=== PATIENT | male | born 1975 | race African-American/Black ===

== ENCOUNTER 2018-01-28 01:43 | Emergency (ER) | payer OTHER ==
[~2018-01-28] VITALS: Ht 182.9 cm; Wt 156.5 kg
--- NOTE | ~2018-01-28 | EKG ---
[address] [address] ELECTROCARDIOGRAM REPORT Name: 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[place] : 1975 Requested By: Angela Hernandez Order Number: [id number] MD: Wyatt Henry Measurements Intervals [place] Rate: 102 P: 102 AK: 181 QRS: 153 QRSD: 105 T: 28 QT: 391 QTc: 510 Interpretive Statements Sinus tachycardia Probable left atrial enlargement Probable right ventricular hypertrophy Compared to ECG 09/25/2007 11:34:54 Sinus rhythm no longer present Atrial premature complex(es) no longer present Left posterior fascicular block no longer present Myocardial infarct finding no longer present Electronically Signed On 01-28-2018 13:13:06 CDT by Wyatt Henry [email or web address] <ELECTRONICALLY SIGNED> By: Wyatt Henry MD 01/28/18 1313 2 2 Wyatt Henry MD /EPI
[2018-01-28 02:12] LABS: ABSOLUTE NEUTROPHILS 4.7 thou/uL (1.4-8.2); BASOPHILS 0.9 % (0.0-2.0); EOSINOPHILS 10.3 % (0.0-3.0); HEMATOCRIT 40.6 % (42.0-52.0); HEMOGLOBIN 13.3 gm/dL (14.0-18.0); LYMPHOCYTES 20.6 % (24.0-44.0); MCH 26.1 pg (26.0-34.0); MCHC 32.7 g/dL (28.0-37.0); MCV 79.9 fL (80.0-100.0); MONOCYTES 5.7 % (1.0-8.0); PLATELET COUNT 206 thou/uL (150-400); POLYS 62.5 % (36.0-66.0); RBC 5.08 mil/uL (4.50-6.00); RDW 15.2 % (10.5-14.5); WBC 7.5 thou/uL (4.0-11.0)
[2018-01-28 02:20] LABS: CALCIUM 8.6 mg/dL (8.5-10.1); CREATININE 1.9 mg/dL (0.7-1.3)
[2018-01-28 02:26] LABS: POTASSIUM 2.9 mmol/L (3.5-5.1)
[2018-01-28] MEDS ORDERED: PROVENTIL HFA6.7 G1 INH (03:08)
[2018-01-28] MEDS ORDERED: PREDNISONE 20 M20 MG PO (03:08)
[2018-01-28] MEDS ORDERED: CALCIUM 600 +1 EAC1 PO (03:20)
[2018-01-28 03:52] VITALS: BP 173/99
== END 2018-01-28 07:47 | disposition home or self-care (01) ==
LOC: ER 01:43
PROVIDERS: Emergency Medicine
DX: J45.901 Unspecified asthma with (acute) exacerbation (principal); I10 Essential (primary) hypertension; E87.6 Hypokalemia; M25.562 Pain in left knee; G89.29 Other chronic pain; E66.01 Morbid (severe) obesity due to excess calories; M19.90 Unspecified osteoarthritis, unspecified site; Z91.14 Patient's other noncompliance with medication regimen

== ENCOUNTER 2018-09-03 04:18 | Emergency (ER) | payer OTHER ==
[~2018-09-03] VITALS: Ht 182.9 cm; Wt 163.3 kg
[~2018-09-03 04:18] MED LIST: CALCIUM 600 +1 EAC1 PO; PREDNISONE 20 M20 MG PO; PROVENTIL HFA6.7 G1 INH
[2018-09-03] MEDS ORDERED: POTASSIUM20 PO (04:31)
[2018-09-03] MEDS ORDERED: NORVASC10 MG PO (04:32)
[2018-09-03] MEDS ORDERED: HYDRALAZINE 2525 MG PO (04:32)
[2018-09-03] MEDS ORDERED: COREG25 MG PO (04:33)
[2018-09-03] MEDS ORDERED: METFORMIN HCL500 MG PO (04:33)
[2018-09-03] MEDS ORDERED: LISINOPRIL40 MG PO (04:33)
[2018-09-03] MEDS ORDERED: CATAPRES0.2 MG PO (04:34)
[2018-09-03] MEDS ORDERED: VALIUM5 MG PO (06:11)
[2018-09-03] MEDS ORDERED: NAPROSYN500 M1 PO (06:11)
[2018-09-03] MEDS ORDERED: SENNA-DOCUSATE1 EAC1 PO (06:11)
[2018-09-03] MEDS ORDERED: PREDNISONE 20 M20 MG PO (06:11)
[2018-09-03] MEDS ORDERED: PERCOCET 7.5-31 EACH PO (06:11)
[2018-09-03 06:33] VITALS: BP 224/125
== END 2018-09-03 06:34 | disposition home or self-care (01) ==
LOC: ER 04:18
DX: S46.811A Strain of other muscles, fascia and tendons at shoulder and upper arm level, right arm, initial encounter (principal); G47.30 Sleep apnea, unspecified; I10 Essential (primary) hypertension; M19.90 Unspecified osteoarthritis, unspecified site; X58.XXXA Exposure to other specified factors, initial encounter; Y93.89 Activity, other specified; Y92.89 Other specified places as the place of occurrence of the external cause; Y99.8 Other external cause status

== ENCOUNTER 2019-04-29 14:12 | Emergency (ER) | payer OTHER ==
[~2019-04-29] VITALS: Ht 182.9 cm; Wt 158.8 kg
[~2019-04-29 14:12] MED LIST changes: +AFRIN30 ML NASAL; +ALBUTEROL2.5 MG/31 INH; +ALDACTONE50 MG PO; +CATAPRES0.2 MG PO; +COREG25 MG PO; +FLONASE 0.05%50 MCG NASAL; +HYDRALAZINE 2525 MG PO; +LISINOPRIL40 MG PO; +METFORMIN HCL500 MG PO; +NAPROSYN500 M1 PO; +NORVASC10 MG PO; +PERCOCET 7.5-31 EACH PO; +POTASSIUM20 PO; +SENNA-DOCUSATE1 EAC1 PO; +VALIUM5 MG PO; +ZYRTEC10 MG PO
[2019-04-29] MEDS ORDERED: ZANTAC 150MG T150 MG PO (17:15)
[2019-04-29] MEDS ORDERED: ONDANSETRON HCL4 M2 PO (17:15)
[2019-04-29] MEDS ORDERED: ZYRTEC10 M2 PO (17:15)
[2019-04-29] MEDS ORDERED: PREDNISONE 20 M20 MG PO (17:15)
[2019-04-29 17:36] VITALS: BP 144/96
--- NOTE | 2019-04-30 12:41 | EKG ---
[place] [address] [facility] [employer] [place] [address] ELECTROCARDIOGRAM REPORT Name: YADIRA WELCH [facility] [id number] ������������������ Admission: 04/29/19 ������������������ Attend Phys: Discharge: 04/29/19 ������������������ Date of : 71 Report #: [id number] ����������������������������������������������������������������� [id number] THIS REPORT FOR: //name// [facility] ED Test Date: 2019-04-29 Test Time: 14:18:25 Pat Name: [facility] Department: Room: 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 : 1975 Requested By: Katyh Henderson Order Number: [id number] MD: Jimmy Perez Measurements Intervals [place] Rate: 95 P: 48 CO: 187 QRS: 138 QRSD: 76 T: 30 QT: 339 QTc: 426 Interpretive Statements Sinus rhythm Rightward axis Poor R wave progression Compared to ECG 01/28/2018 02:13:19 No significant change was found Electronically Signed On 04-30-2019 12:41:07 CDT by Jimmy Perez [email or web address] ��������������������������������������������� <ELECTRONICALLY SIGNED> ���������������������������������������� By: Jimmy Perez MD, [facility] ��������������������������������������������� 04/30/19 1241 1418 1418 Jimmy Perez MD, FACC /EPI
== END 2019-04-29 17:36 | disposition home or self-care (01) ==
LOC: ER 14:12
DX: T78.40XA Allergy, unspecified, initial encounter (principal); L50.9 Urticaria, unspecified; I10 Essential (primary) hypertension; G47.30 Sleep apnea, unspecified; M19.90 Unspecified osteoarthritis, unspecified site; X58.XXXA Exposure to other specified factors, initial encounter